=== PATIENT | male | born 1970 | race Caucasian/White ===

== ENCOUNTER 2019-10-22 19:18 | Emergency (ER) | payer BC ==
[~2019-10-22] VITALS: Ht 190.5 cm; Wt 113.4 kg
[2019-10-22 19:48] VITALS: BP_SYST 149
--- NOTE | 2019-10-22 19:51 | NUR ---
Patient to ER bed 04 to gown for evaluation. Side rails up. Report given to audra aviles
--- NOTE | 2019-10-22 20:00 | NUR ---
Ana rouse in [facility] - 10/23/19 at [address] Berto odell for pt gabbyal
--- NOTE | 2019-10-22 20:05 | NUR ---
RACHELLE Ha at bedside for pt eval
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
[2019-10-22 21:10] VITALS: BP_SYST 149
--- NOTE | 2019-10-22 21:10 | NUR ---
Patient given written and verbal discharge instructions and verbalizes understanding. ER MD discussed with patient the results and treatment provided. Patient in stable condition. ID arm band removed. Rx of Ibuprofen given. Patient educated on pain management and to follow up with PMD. Pain Scale 0/10 Opportunity for questions provided and answered. Medication side effect fact sheet provided.
== END 2019-10-22 21:10 | disposition home or self-care (01) ==
LOC: SED 19:18
DX: H11.32 Conjunctival hemorrhage, left eye (principal)
CPT/HCPCS: 99282